=== PATIENT | female | born 1975 | race Two or more races ===

== ENCOUNTER 2016-09-21 07:37 | Emergency (ER) | payer OTHER ==
[~2016-09-21 07:37] MED LIST: ALBUTEROL17 GM INH; CARAFATE1 G PO; IBUPROFEN800 MG; MEDROL4 MG/DOSE- PO; NO MEDICATIONS; PRILOSEC PO; ZYRTEC PO
[2016-09-21] MEDS ORDERED: ALL DAY ALLERG1 EACH PO (07:44)
== END 2016-09-21 08:14 | disposition home or self-care (01) ==
LOC: SED 07:37
DX: J02.9 Acute pharyngitis, unspecified (principal); J30.2 Other seasonal allergic rhinitis
CPT/HCPCS: 87651; 99282